=== PATIENT | female | born 1945 | race Caucasian/White ===

== ENCOUNTER → 2024-06-28 | Outpatient (CLI) | payer MEDICARE, OTHER ==
[2024-06-28 13:15] VITALS: BP 160/90; PULSE 88; RESP 16; TEMP 98.3
--- NOTE | 2024-06-28 13:37 | P.GSCN ---
History of Present Illness Consult date: 06/28/24 Reason for Consult: right breast invasive ductal cancer two sites Requesting physician: Cassandra Rust History of present illness: Briana is a 78 year old female seen in consultation for Dr. 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 1:00 and 2 o'clock position[place] [address]. This revealed 2 subcentimeter masses within the right breast mid posterior third at 1:00 and 2:00. She subsequently underwent an ultrasound of this area which confirmed the nodules. She then underwent an ultrasound-guided core biopsy at the 1 o'clock position this revealed invasive ductal carcinoma ER positive OR positive HER2 pending 2 o'clock position invasive ductal carcinoma ER positive OR positive HER2 negative. Noted on a routine mammogram. She did not feel any lumps masses or nodules of concern in either breast. She has never had any surgery on either breast prior to this. She is not complaining of any nipple discharge or skin changes. She has not had any recent trauma or infection in the breast. Caffeine: none nicotine: none chocolate: occasional BCP: used them for < 2 years hormones: none Family History: no cancer Hormonal History: menarche: 14 , breast fed: yes, age at first : 19 menopause: Feb 1998, 52 years old Surgical History: inguinal hernia bilateral gallbladder bilateral cataract Medical History: hypothyroid Social History: nicotine: none alcohol: none drugs: none Review of Systems - Constitutional Denies fever, Denies weight loss - EENT EENT Comment(s): wears glasses, dry eyes Eyes: bilateral as per HPI Ears: left: decreased hearing, deny: tinnitus Ears, nose, mouth and throat: Denies dysphagia - Breasts bilateral: as per HPI - Cardiovascular Denies chest pain, Denies shortness of breath - Respiratory Denies cough, Denies 7 - Gastrointestinal Reports as per HPI - Genitourinary Genitourinary: Denies dysuria, Denies hematuria Menstruation: Reports postmenopausal - Musculoskeletal Reports as per HPI - Integumentary Denies rash, Denies unusual bruising - Neurological Denies headaches, Denies syncope - Psychiatric Reports as per HPI - Endocrine Endocrine Comment(s): weight loss of 13 pounds not trying Reports weight change - Hematologic/Lymphatic Denies easy bleeding, Denies easy bruising - Allergic/Immunologic Reports as per HPI Past Medical History Past Medical History: Unable to Obtain History of Any Multi-Drug Resistant Organisms: None Reported Past Surgical History: Unable to Obtain Past Anesthesia/Blood Transfusion Reactions: Unable to Obtain Past Psychological History: No Psychological Hx Reported Smoking Status: Never smoker Past Alcohol Use History: None Reported Past Drug Use History: None Reported Medications and Allergies Home Medications Medication Instructions Recorded Confirmed Type Levothyroxine Sodium [Levoxyl] 75 mcg PO DAILY 06/28/24 06/28/24 History cycloSPORINE 0.05% OPHTH SOLN 1 drop BOTH EYES BID 06/28/24 06/28/24 History [Restasis] Allergies Allergy/AdvReac Type Severity Reaction Status Date / Time aspirin Allergy Nausea & Unverified 06/28/24 13:07 Vomiting & Diarrhea caffeine Allergy Nausea & Unverified 06/28/24 13:07 Vomiting & Diarrhea levofloxacin [From Levaquin] Allergy Rapid Unverified 06/28/24 13:07 Heart Rate Opioids - Morphine Analogues Allergy Rapid Unverified 06/28/24 13:07 Heart Rate Penicillins Allergy Rash/Hives Unverified 06/28/24 13:07 Sulfa (Sulfonamide Allergy Unknown Unverified 06/28/24 13:07 Antibiotics) Childhood Surgical - Exam Vital Signs Temp Pulse Resp BP Pulse Ox 98.3 F 88 16 160/90 97 06/28/24 13:09 06/28/24 13:09 06/28/24 13:09 06/28/24 13:09 06/28/24 13:09 - General no distress - Eyes normal ocular movement - Neck trachea midline - Respiratory normal respiratory effort, clear to auscultation - Cardiovascular Rhythm: regular Heart Sounds: normal: S1, S2 - Abdomen Abdomen: soft, non tender, no guarding, no rigid, no rebound - Integumentary normal turgor - Neurologic no disoriented, no combative - Musculoskeletal normal gait - Psychiatric oriented to time, oriented to person, oriented to place, speech is normal, memory intact Breast Exam: BRA: 36D inspection: Bilateral grade 3 ptosis Palpation: Right breast: Multi positional exam no dominant masses or nodules of concern, biopsy site in the 1 o'clock position is clean and dry with no evidence of hematoma or infection Right axilla: No adenopathy of concern Left breast: Multi positional exam no dominant masses or nodules of concern Left axilla: No adenopathy of concern Results Mammogram and ultrasound personally reviewed and interpreted with Dr. Varma from radiology, there are 2 sites in the right breast 1 at 1:00 and 1 at 1 30-2 o'clock both have been biopsied and clips are present in both sites the lesion appears to be in the 1-2 o'clock positions in the posterior breast behind the nipple areolar complex Assessment and Plan Assessment: Impression: Biopsy-proven invasive ductal carcinoma 1:00 and 2 o'clock position right breast Plan: Presentation of case at tumor board The patient is seen in conjunction with her and daughter. The disease process will be discussed with them and further recommendation to follow. Dr. Rust
== END ==
LOC: WWCWWP 11:31
PROVIDERS: ATTEND Surgery
DX: D05.11 Intraductal carcinoma in situ of right breast (principal); Z88.6 Allergy status to analgesic agent; Z91.018 Allergy to other foods; Z88.1 Allergy status to other antibiotic agents; Z88.5 Allergy status to narcotic agent; Z88.0 Allergy status to penicillin; Z88.2 Allergy status to sulfonamides

== ENCOUNTER → 2024-08-02 | Outpatient (CLI) | payer MEDICARE, OTHER ==
[2024-08-02 12:59] VITALS: BP 148/85; PULSE 68; RESP 17; TEMP 97.9
--- NOTE | 2024-08-02 13:33 | P.BCPN ---
Subjective Progress Note Date: 08/02/24 Principal diagnosis: right breast two sites invasive ductal cancer History of Present Illness Consult date: 08-02-24 Reason for Consult: right breast invasive ductal cancer two sites Requesting physician: Cassandra Rust History of present illness: Briana is a 78 year old female seen in consultation for Dr. 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 1:00 and 2 o'clock position. She underwent a bilateral mammogram on . This revealed 2 subcentimeter masses within the right breast mid posterior third at 1:00 and 2:00. She subsequently underwent an ultrasound of this area which confirmed the nodules. She then underwent an ultrasound-guided core biopsy at the 1 o'clock position this revealed invasive ductal carcinoma ER positive KS positive HER2 pending 2 o'clock position invasive ductal carcinoma ER positive KS positive HER2 negative. Noted on a routine mammogram. She did not feel any lumps masses or nodules of concern in either breast. She has never had any surgery on either breast prior to this. She is not complaining of any nipple discharge or skin changes. She has not had any recent trauma or infection in the breast. Patient's case presented at tumor board in 07 03 24. At this time it is felt that a needle localization lumpectomy with sentinel node injection sentinel node biopsy possible axillary node dissection and possible oncoplastic tissue transfer is the next step in the treatment. She has 2 sites which will be localized. She would like this to be done via a mastopexy incision. We are going to cancel her MRI and she is aware of this and at this time she is going to do genetic testing. We would request preoperative clearance from Dr. Zaragoza. The patient has been called the above has been discussed with her. Caffeine: none nicotine: none chocolate: occasional BCP: used them for < 2 years hormones: none Family History: no cancer Hormonal History: menarche: 14 , breast fed: yes, age at first : 19 menopause: Feb 1998, 52 years old Surgical History: inguinal hernia bilateral gallbladder bilateral cataract Medical History: hypothyroid Social History: nicotine: none alcohol: none drugs: none Review of Systems - Constitutional Denies fever, Denies weight loss - EENT EENT Comment(s): wears glasses, dry eyes Eyes: bilateral as per HPI Ears: left: decreased hearing, deny: tinnitus Ears, nose, mouth and throat: Denies dysphagia - Breasts bilateral: as per HPI - Cardiovascular Denies chest pain, Denies shortness of breath - Respiratory Denies cough - Gastrointestinal Reports as per HPI - Genitourinary Genitourinary: Denies dysuria, Denies hematuria Menstruation: Reports postmenopausal - Musculoskeletal Reports as per HPI - Integumentary Denies rash, Denies unusual bruising - Neurological Denies headaches, Denies syncope - Psychiatric Reports as per HPI - Endocrine Endocrine Comment(s): weight loss of 13 pounds not trying Reports weight change - Hematologic/Lymphatic Denies easy bleeding, Denies easy bruising - Allergic/Immunologic Reports as per HPI Past Medical History Past Medical History: Unable to Obtain History of Any Multi-Drug Resistant Organisms: None Reported Past Surgical History: Unable to Obtain Past Anesthesia/Blood Transfusion Reactions: Unable to Obtain Past Psychological History: No Psychological Hx Reported Smoking Status: Never smoker Past Alcohol Use History: None Reported Past Drug Use History: None Reported Medications and Allergies Home Medications Medication Instructions Recorded Confirmed Type Levothyroxine Sodium [Levoxyl] 75 mcg PO DAILY 06/28/24 06/28/24 History cycloSPORINE 0.05% OPHTH SOLN 1 drop BOTH EYES BID 06/28/24 06/28/24 History [Restasis] Allergies Allergy/AdvReac Type Severity Reaction Status Date / Time aspirin Allergy Nausea & Unverified 06/28/24 13:07 Vomiting & Diarrhea caffeine Allergy Nausea & Unverified 06/28/24 13:07 Vomiting & Diarrhea levofloxacin [From Levaquin] Allergy Rapid Unverified 06/28/24 13:07 Heart Rate Opioids - Morphine Analogues Allergy Rapid Unverified 06/28/24 13:07 Heart Rate Penicillins Allergy Rash/Hives Unverified 06/28/24 13:07 Sulfa (Sulfonamide Allergy Unknown Unverified 06/28/24 13:07 Antibiotics) Childhood Objective - Vital Signs Vital Signs: Vital Signs Temp 97.9 F 08/02/24 12:57 Pulse 68 08/02/24 12:57 Resp 17 08/02/24 12:57 BP 148/85 08/02/24 12:57 Pulse Ox 97 08/02/24 12:57 FiO2 Intake & Output 08/01/24 08/02/24 08/02/24 18:59 06:59 18:59 Weight 64.864 kg - Constitutional General appearance: Present: cooperative - EENT Eyes: Present: EOMI ENT: Present: hearing grossly normal - Neck Neck: Present: normal ROM - Breast Breast-Narrative: Breast Exam: BRA: 36D inspection: Bilateral grade 3 ptosis Palpation: Right breast: Multi positional exam no dominant masses or nodules of concern, biopsy site in the 1 o'clock position is clean and dry with no evidence of hematoma or infection Right axilla: No adenopathy of concern Left breast: Multi positional exam no dominant masses or nodules of concern Left axilla: No adenopathy of concern Ptosis: Grade 3: Right Breast Ptosis, Left Breast Ptosis Right Breast Palpation (Multi-positional): No dominant masses Left Breast Palpation (Multi-positional): No dominant masses Right Axilla Palpation: No adenopathy of concern Left Axilla Palpation: No adenopathy of concern - Respiratory Respiratory: bilateral: CTA - Cardiovascular Rhythm: regular Heart sounds: normal: S1, S2 - Integumentary Integumentary: Present: normal turgor - Musculoskeletal Musculoskeletal: Present: gait normal - Psychiatric Psychiatric: Present: A&O x's 3, appropriate affect, intact judgment & insight Assessment and Plan Plan: Impression: Biopsy-proven invasive ductal carcinoma 1:00 and 2 o'clock position right breast Plan: Right breast needle needle localization of two sites at 1:00 and 2:00 with lumpectomy, possible oncoplastic tissue transfer, right sentinel node injection, right sentinel node biopsy, possible right axillary node dissection, to be done via a mastopexy incision if possible Risk and benefits of the procedure discussed with the patient and her . Risk include but are not limited to bleeding, infection, reaction to the anesthetic. If the margins were to be positive for the needle slip in the tissue not adequately removed then further tissue acquisition may be necessary. With respect to the sentinel node biopsy we have discussed the fact that she is over 72 but she does have 2 areas of tumor and she would like to have the sentinel node biopsy performed. Risk include but are not limited to bleeding, infection, reaction to the anesthetic. There could be some decrease sensation to the inner arm, lymphedema, or injury to the thoracodorsal or long thoracic nerves resulting in winged scapula. She understands and wishes to proceed. The patient is seen in conjunction with her Dr. Rust Prep Education Provided - Preoperative Education Given Pre-Op Kit Given Date: 08/02/24 - Functional Assessment Performed?: Yes (arm abduction passed) Referal Provided?: No - Smoking Cessation Education Provided?: No (nonsmoker)
== END ==
LOC: WWCWWP 12:04
PROVIDERS: ATTEND Surgery
DX: Z12.31 Encounter for screening mammogram for malignant neoplasm of breast (principal); C50.211 Malignant neoplasm of upper-inner quadrant of right female breast; Z88.6 Allergy status to analgesic agent; Z91.018 Allergy to other foods; Z88.1 Allergy status to other antibiotic agents; Z88.5 Allergy status to narcotic agent; Z88.0 Allergy status to penicillin; Z88.2 Allergy status to sulfonamides

== ENCOUNTER 2024-08-14 06:57 | Day surgery (SDC) | payer MEDICARE, OTHER ==
[2024-08-14] MEDS ORDERED: fentaNYL (PF) 50 MCG/ML 2 ML AMP IV PRN (07:00)
[2024-08-14] MEDS ORDERED: MIDAZOLAM 2 MG/2 ML VIAL IV PRN (07:00)
[2024-08-14] MEDS ORDERED: METHYLENE BLUE 50 MG/10 ML AMPUL MISCELLANE ONE (07:30)
[2024-08-14] MEDS: IV FLUID CONTINUATION 1,000 ML IV ONE (07:31)
[2024-08-14] MEDS: ALPRAZolam 0.25 MG TAB PO STA (07:44)
[2024-08-14] MEDS: LACTATED RINGERS 1,000 ML IV SCH (07:48)
[2024-08-14] MEDS: LIDOCAINE 1% INJ 10MG/ML (20 ML MDV) SQ ONE ×3 (08:45→11:38)
[2024-08-14] MEDS: SODIUM BICARB 8.4% 50 ML VIAL (1 MEQ/ML) MISCELLANE ONE (08:45)
[2024-08-14] MEDS: METHYLENE BLUE 50 MG/10 ML AMPUL MISCELLANE ONE (09:05)
[2024-08-14] MEDS: ACETAMINOPHEN TAB 500 MG TAB PO PRN (09:45)
[2024-08-14] MEDS: HEPARIN SODIUM,PORCINE 5,000 UNIT/ML 1 ML VIAL SQ PRN (09:45)
[2024-08-14] MEDS: ONDANSETRON 4 MG/2 ML VIAL IVP ONE (09:46)
[2024-08-14] MEDS: DEXAMETHASONE SOD PHOSPHATE 4 MG/ML 1 ML VIAL IV ONE (09:46)
[2024-08-14] MEDS ORDERED: KETAMINE HCL IN 0.9 % NACL 50 MG/5 ML SYRINGE ONE (09:48)
[2024-08-14] MEDS ORDERED: LIDOCAINE 1% INJ 10MG/ML (20 ML MDV) ONE (09:48)
[2024-08-14] MEDS ORDERED: KETOROLAC 15 MG/ML 1 ML VIAL ONE (09:48)
[2024-08-14] MEDS ORDERED: SUCCINYLCHOLINE CHLORIDE 200 MG/10 ML VIAL IV ONE (09:48)
[2024-08-14] MEDS ORDERED: ePHEDrine 50 MG/ML 1 ML VIAL ONE (09:48)
[2024-08-14] MEDS ORDERED: diphenhydrAMINE 50 MG/ML 1 ML VIAL ONE (09:48)
[2024-08-14] MEDS ORDERED: fentaNYL (PF) 50 MCG/ML 2 ML AMP ONE (09:48)
[2024-08-14] MEDS ORDERED: PROPOFOL 10 MG/ML 20 ML VIAL IV ONE (09:48)
--- NOTE | 2024-08-14 09:59 | P.NAPBC ---
[facility] Queries - [facility] Queries Was patient's case review presented at [facility] tumor board? If no, comment.: Yes Was patient's pathology reviewed at [facility]? If no, comment.: Yes Was breast conservation surgery offered? If no, comment.: Yes Was sentinel node biopsy offered? If no, comment.: Yes Was diagnosis confirmed by percutaneous core biopsy? If no, comment.: Yes Is patient mastectomy patient?: No Was a preop referral to reconstructive surgeon offered?: No [facility] Comments: discussed SNB and patient understnads could ommit secondary to age > 70 but patient and family wnats this done Clinical Stage: two sites stage 1 IDC right breast [id number]-
--- NOTE | 2024-08-14 10:24 | NM ---
EXAMINATION TYPE: NM sentinel node injection DATE OF EXAM: 08/14/2024 COMPARISON: NONE CLINICAL INDICATION: Female, 78 years old with history of C50.211 BREAST CANCER; right-sided breast c ancer upper inner quadrant. TECHNIQUE AND FINDINGS: The procedure of sentinel lymph node injection was explained to the patient. The benefits, alternatives, and risks were discussed. An informed consent was then obtained. Overlying skin is cleaned with sterile alcohol. Following this, 510 uCi Tc99m Tilmanocept was inject ed in the upper outer aspect of the right nipple intradermally. The patient tolerated the procedure well without any immediate complication. The patient was kept in the radiology department for short stay after the procedure and then taken to surgery for surgical p rocedure what is presumed intraoperative gamma probe will be used for sentinel lymph node detection. IMPRESSION: Right breast radiotracer injection for sentinel node localization as above. [facility], , 08/14/2024 10:22 AM
[2024-08-14] MEDS: LACTATED RINGERS 1,000 ML IV ONE (11:38)
--- NOTE | 2024-08-14 11:42 | P.BCAON ---
Date of Procedure: 08/14/24 Preoperative Diagnosis: 2 sites invasive ductal carcinoma right breast Postoperative Diagnosis: Same Procedure(s) Performed: Breast sentinel node biopsy, rule lumpectomy 2 sites right breast, oncoplastic tissue transfer 54 cm Anesthesia: GETA Surgeon: Mireya Sykes Estimated Blood Loss (ml): 10 IV fluids (ml): 900 Pathology: other (Breast tissue/axillary tissue) Condition: stable Disposition: same day Indications for Procedure: Biopsy-proven right breast invasive ductal carcinoma 2 sites Operative Findings: Dense breast tissue Description of Procedure: The patient was first seen in the radiology department. Needle localization of both sites in the breast was performed as well as injection of methylene blue at the site. Radiotracer was performed for sentinel node biopsy. The patient was then brought to the operative suite. Following induction of anesthesia the axilla was interrogated using the neoprobe. The radiotracer was noted to have traveled to the axilla. The right breast and axilla were prepped and draped in a sterile fashion. The axilla was approached initially. An incision was made and carried down to the axillary tissue. Using the neoprobe the area of greatest radioactivity was identified. This was close to the chest wall. This was grasped using an Allis clamp. The tissue was resected. A lymph node was identified and the 10-second count on the lymph node was 4336. The 10-second background count was 30. No additional adenopathy of concern was identified. The wound was well irrigated. The deep tissues were closed using 3-0 Vicryl suture. The skin was closed using 4-0 Monocryl. The area of the breast was approached. Preoperatively have discussed with the patient that I would not be using a mastopexy incision and she concurred with this. An incision was made and carried down to the hook of both needles. Additionally the blue stained tissue was resected. The specimen was noted to be 6 x 4 cm in size. It was painted for orientation. Radiograph of the specimen revealed the clips and the wires were present. The dissection posteriorly was onto the pectoralis muscle. Anteriorly it was directly under the skin and the subcutaneous tissue. After we are sure that hemostasis was a attained a superior pillar developed by dissecting in the subcutaneous plane 5 x 3 cm was developed. An inferior pillar 5 x 3 cm was developed by dissecting in the subcutaneous plane. The pillars were brought together over the defect. Prior to that the defect was well irrigated. Titanium clips were placed. Surgicel in powder form was placed. The pillars were then brought together and secured using 3-0 Vicryl suture. The subcutaneous tissue was closed using 3-0 Vicryl suture. The skin was closed using 4-0 Monocryl. Surgical glue was placed. The patient tolerated the procedure in stable condition. 20 cc of 1% lidocaine was injected into the incision. All instrument and sponge counts were correct at the end of the case. - Sentinal Node Biopsy Operation performed with curative intent: Yes Tracer(s) used in upfront surgery (non-neoadjuvant): radioactive tracer Tracer(s) used in the neoadjuvant setting: N/A All nodes present at end of dye-filled channel removed: N/A All significantly radioactive nodes were removed: Yes All palpably suspicious nodes were removed: Yes Clipped positive nodes identified and removed: N/A
[2024-08-14 12:05] VITALS: TEMP 98
[2024-08-14 13:12] VITALS: RESP 16
[2024-08-14 13:29] VITALS: BP 149/93; PULSE 84
== END 2024-08-14 13:58 | disposition home or self-care (01) ==
LOC: OR 06:57
PROVIDERS: ATTEND Surgery
DX: C50.211 Malignant neoplasm of upper-inner quadrant of right female breast (principal); Z17.0 Estrogen receptor positive status [ER+]; Z17.21 Progesterone receptor positive status; Z17.32 Human epidermal growth factor receptor 2 negative status; E03.9 Hypothyroidism, unspecified; R73.03 Prediabetes; Z79.890 Hormone replacement therapy; Z88.6 Allergy status to analgesic agent; Z88.1 Allergy status to other antibiotic agents; Z88.5 Allergy status to narcotic agent; Z88.0 Allergy status to penicillin; Z88.2 Allergy status to sulfonamides
CPT/HCPCS: 38525; 19301; 14301; 88342; 88307; 88341; 76098; 19281; 19282; 38792; C1819; A9520; J0330; J1200; J1644; J1100; J0690; J2405; J2003; J3010; J1885; J2704; Q9968

== ENCOUNTER → 2024-08-23 | Outpatient (CLI) | payer MEDICARE, OTHER ==
[2024-08-23 12:50] VITALS: BP 143/86; PULSE 71; RESP 17; TEMP 98.1
--- NOTE | 2024-08-23 13:28 | P.BCPO ---
Progress Note - Text Progress Note Date: 08/23/24 Briana is status post right bresat needle localization lumpectomy and SNB on 08-14-24. 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 Two sites (+) on posterior margin, but this was on the pect muscle. She has noted erythematous punctate spots on the right upper extremity and in between the breast. They do not itch. SNB (-) The dissection posteriorly was onto the pectoralis muscle. Examination: lungs: clear heart: RRR Incision: clean and dry breast and axilla Erythematous punctate spots on the right upper extremity and between the breast. Impression: right breast mastectomy appointment dermatology she does not want to see plastic surgery about reconstruction Surgery have been discussed with the patient and her . Risk include but are not limited to bleeding, infection, reaction to the anesthetic. 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 They understand that with resection there may not be any additional cancer in the breast but would like to have the mastectomy done. Also discussed that should there be cancer close to the pectoralis muscle found in our reexcision then radiation may still be recommended. They understand and wish to proceed. Post Op Education - Post Op Education Post Op Education Provided Date: 08/23/24 Path Report - Was patient given path report? Path Report Date Given: 08/23/24
== END ==
LOC: WWCWWP 11:47
PROVIDERS: ATTEND Surgery
DX: Z90.11 Acquired absence of right breast and nipple (principal); Z88.6 Allergy status to analgesic agent; Z91.018 Allergy to other foods; Z88.5 Allergy status to narcotic agent; Z88.0 Allergy status to penicillin; Z88.2 Allergy status to sulfonamides

== ENCOUNTER 2024-09-11 07:22 | Day surgery (SDC) | payer MEDICARE, OTHER ==
[~2024-09-11 07:22] MED LIST: LIDOCAINE 1% (10MG/ML) FOR IV START INTRADERMA PRN
[2024-09-11] MEDS: LACTATED RINGERS 1,000 ML IV SCH (08:10)
[2024-09-11] MEDS: IV FLUID CONTINUATION 1,000 ML IV ONE (08:10)
[2024-09-11] MEDS: ACETAMINOPHEN TAB 500 MG TAB PO PRN (08:23)
[2024-09-11] MEDS: fentaNYL (PF) 50 MCG/ML 2 ML AMP IVP PRN (08:56)
[2024-09-11] MEDS: MIDAZOLAM 2 MG/2 ML VIAL IV PRN (08:56)
--- NOTE | 2024-09-11 09:16 | P.NAPBC ---
[facility] Queries - [facility] Queries Was patient's case review presented at [facility] tumor board? If no, comment.: Yes Was patient's pathology reviewed at [facility]? If no, comment.: Yes Was breast conservation surgery offered? If no, comment.: Yes Was sentinel node biopsy offered? If no, comment.: Yes (already done) Was diagnosis confirmed by percutaneous core biopsy? If no, comment.: Yes Is patient mastectomy patient?: Yes Was a preop referral to reconstructive surgeon offered?: Yes (patient declined) [facility] Comments: patient chose mastectomy after lumpectomy secondary to multifocal disease, she understands no residual may be found in specimen Clinical Stage: stage I [id number]+Her2- multifocal right breast cancer
--- NOTE | 2024-09-11 09:29 | P.ANPRN ---
Procedure Note - Anesthesia - Nerve Block Performed Right Pec 1 and Pec 2 Single Date of Procedure: 09/11/24 Procedure Start Time: 08:56 Procedure Stop Time: 09:14 Indication: Requested by Surgeon Sedation Type: Sedate with meaningful contact maintained Preparation: Sterile Prep Position: Supine Needle Types: Pajunk Needle Gauge: 21 Ultrasound used to visualize needle placement: Yes Ultrasound used to observe medication spread: Yes Injectate: 0.5% Ropivacaine (see comment for volume) (30 mls + 10 mls of NS+ 4 mgs of Decadron) Blood Aspirated: No Pain Paresthesia on Injection Noted: No Resistance on Injection: Normal Events: Uneventful and Well Tolerated
[2024-09-11] MEDS: ONDANSETRON 4 MG/2 ML VIAL IVP ONE (09:34)
[2024-09-11] MEDS: DEXAMETHASONE SOD PHOSPHATE 4 MG/ML 1 ML VIAL IV ONE (09:34)
[2024-09-11] MEDS: HEPARIN SODIUM,PORCINE 5,000 UNIT/ML 1 ML VIAL SQ PRN (09:35)
[2024-09-11] MEDS ORDERED: fentaNYL (PF) 50 MCG/ML 2 ML AMP ONE (09:39)
[2024-09-11] MEDS ORDERED: KETOROLAC 15 MG/ML 1 ML VIAL ONE (09:39)
[2024-09-11] MEDS ORDERED: LIDOCAINE 1% INJ 10MG/ML (20 ML MDV) ONE (09:39)
[2024-09-11] MEDS ORDERED: PROPOFOL 10 MG/ML 20 ML VIAL IV ONE (09:39)
[2024-09-11] MEDS ORDERED: SODIUM CHLORIDE 0.9% (PF) 10 ML VIAL ONE (09:39)
[2024-09-11] MEDS ORDERED: ROPIVACAINE 5 MG/ML 30 ML VIAL ONE (09:39)
[2024-09-11] MEDS ORDERED: WATER FOR INJECTION, STERILE 10 ML VIAL IV ONE (09:39)
[2024-09-11] MEDS ORDERED: diphenhydrAMINE 50 MG/ML 1 ML VIAL ONE (09:39)
[2024-09-11] MEDS ORDERED: ePHEDrine 50 MG/ML 1 ML VIAL ONE (09:39)
[2024-09-11] MEDS ORDERED: DEXAMETHASONE SOD PHOSPHATE 4 MG/ML 1 ML VIAL ONE (09:39)
[2024-09-11] MEDS: ceFAZolin 2 GM in DEXTROSE 5% IN WATER 50 ML IVPB PRN (09:43)
[2024-09-11] MEDS: LACTATED RINGERS 1,000 ML IV ONE (10:51)
[2024-09-11] MEDS ORDERED: ALPRAZolam 0.25 MG TAB PO PRN (11:36)
[2024-09-11] MEDS ORDERED: ONDANSETRON 4 MG/2 ML VIAL IVP PRN (11:36)
[2024-09-11] MEDS ORDERED: HYDROcodone/APAP 5-325MG 1 EACH TAB PO PRN (11:36)
[2024-09-11] MEDS ORDERED: MORPHINE SULFATE 4 MG/ML SYRINGE IVP PRN (11:36)
[2024-09-11] MEDS ORDERED: BENZOCAINE/MENTHOL LOZENG 1 EACH LOZENGE MUCOUS MEM PRN (11:36)
[2024-09-11] MEDS ORDERED: NALOXONE 0.4 MG/ML 1 ML VIAL IV PRN (11:36)
[2024-09-11] MEDS ORDERED: MELATONIN 3 MG TABLET PO PRN (11:36)
--- NOTE | 2024-09-11 11:36 | P.BCAON ---
Date of Procedure: 09/11/24 Preoperative Diagnosis: Right breast invasive ductal carcinoma multifocal Postoperative Diagnosis: Same Procedure(s) Performed: Right mastectomy Anesthesia: SEAN Surgeon: Mireya Sykes Estimated Blood Loss (ml): 10 IV fluids (ml): 1,100 Pathology: other (Breast) Condition: stable Disposition: floor Indications for Procedure: Right breast multifocal invasive ductal carcinoma Operative Findings: Dense breast tissue Description of Procedure: The patient was taken to the operative suite and following induction of anesthesia the right breast and axilla were prepped and draped in a sterile fashion. Superior and inferior markings were placed for superior and inferior skin flaps. The superior skin flap was developed initially. Dissection was performed through the skin and subcutaneous tissue. Using the plane between the skin and the breast in the subcutaneous tissue the superior flap was developed. It was followed down to the pectoralis muscle. Hemostasis was attained using the electrocautery device as well as the harmonic scalpel. In a similar fashion through the skin into the subcutaneous tissue. Dissection was performed in this plane down to the chest wall. The breast was then removed from medial to lateral off the pectoralis muscle being careful to maintain hemostasis using the Bovie, harmonic scalpel, and suture ligation of any vessels that were necessary. The breast was removed and a superior suture was placed which was short and an lateral suture was placed which was long. The breast was handed off as a specimen. The wound was well irrigated. Surgicel in powder form was placed. After we were sure that hemostasis was attained the subcutaneous tissues were closed using interrupted 3-0 Vicryl suture. This was followed by running 3-0 Vicryl suture. The skin was reapproximated using 4-0 Monocryl. Surgical glue was placed. 20 cc of 1% lidocaine were injected into the incision. The patient tolerated the procedure in stable condition. All instrument and sponge counts were correct at the end of the case.
[2024-09-11] MEDS: LIDOCAINE 1% INJ 10MG/ML (20 ML MDV) SQ ONE (11:50)
[2024-09-11] MEDS: DEXTROSE 5%-0.45% NACL 1,000 ML IV SCH (13:51)
[2024-09-11] MEDS: HEPARIN SODIUM,PORCINE 5,000 UNIT/ML 1 ML VIAL SQ SCH (16:11)
[2024-09-12 05:25] LABS: Basophils # (A) 0.05 10*3/uL (0.00-0.10); Basophils % (A) 0.4 %; Eosinophils # (A) 0.26 10*3/uL (0.04-0.35); Eosinophils % (A) 2.2 %; HCT 33.7 % (37.2-46.3); HGB 11.1 g/dL (12.0-15.0); Lymphocytes # (A) 1.43 10*3/uL (0.90-5.00); Lymphocytes % (A) 11.9 %; MCH 30.5 pg (27.0-32.0); MCHC 32.9 g/dL (32.0-37.0); MCV 92.6 fL (80.0-97.0); Monocytes % (A) 6.7 %; Neutrophils # (A) 9.42 10*3/uL (1.80-7.70); Neutrophils % (A) 78.6 %; Platelet Count 186 10*3/uL (140-440); RBC 3.64 10*6/uL (4.10-5.20); WBC 11.98 10*3/uL (4.50-10.00)
[2024-09-12 08:46] VITALS: BP 121/70; PULSE 68; RESP 17; TEMP 98.6
--- NOTE | 2024-09-12 09:40 | P.PN ---
Subjective Progress Note Date: 09/12/24 Principal diagnosis: Postop day #1 right mastectomy Patient is doing well postoperatively. Her ANDRES drain has had no output. He is not complaining of any pain. She is tolerating diet without difficulty. Objective - Vital Signs Vital signs: Vital Signs Temp 98.6 F 09/12/24 08:00 Pulse 68 09/12/24 08:00 Resp 17 09/12/24 08:00 BP 121/70 09/12/24 08:00 Pulse Ox 99 09/12/24 08:00 FiO2 Intake & Output 09/11/24 09/12/24 09/12/24 18:59 06:59 18:59 Intake Total 1700 Output Total 460 Balance 1240 Weight 63 kg Intake: IV 1700 Output: Urine 450 Estimated Blood Loss 10 Other: # Voids 1 3 - Constitutional General appearance: Present: cooperative - EENT Eyes: Present: EOMI ENT: Present: hearing grossly normal - Neck Neck: Present: normal ROM - Respiratory Respiratory: bilateral: CTA - Cardiovascular Rhythm: regular Heart sounds: normal: S1, S2 - Integumentary Integumentary Comment(s): Right chest wall clean and dry ANDRES drain is not functioning Small seroma present - Labs CBC & Chem 7: 09/12/24 04:42 Labs: Abnormal Lab Results - Last 24 Hours (Table) 09/12/24 Range/Units 04:42 WBC 11.98 H (4.50-10.00) 10*3/uL RBC 3.64 L (4.10-5.20) 10*6/uL Hgb 11.1 L (12.0-15.0) g/dL Hct 33.7 L (37.2-46.3) % Neutrophils # 9.42 H (1.80-7.70) 10*3/uL Assessment and Plan Assessment: Impression: Patient doing well postop day #1 mastectomy ANDRES drain not functioning Plan: Milking ANDRES drain The ANDRES drain was milked and an attempt to draw fluid back using a 20 cc syringe was also performed. No fluid was able to be drawn back. Therefore the ANDRES drain was removed. Upon removing the drain approximately 50 cc of serous fluid extruded from the drain site. There appeared to be complete resolution of any seroma. Patient is stable for discharge home She does inform that a seroma may again develop in which case we would aspirated in the office.
[2024-09-12] MEDS: ACETAMINOPHEN TAB 500 MG TAB PO PRN (10:00)
== END 2024-09-12 10:05 | disposition home or self-care (01) ==
LOC: OR 07:22 → 4FBP 11:54 → OR 09-12 10:05
PROVIDERS: ATTEND Surgery
DX: L82.1 Other seborrheic keratosis (principal); E03.9 Hypothyroidism, unspecified; Z79.890 Hormone replacement therapy; Z88.6 Allergy status to analgesic agent; Z88.5 Allergy status to narcotic agent; Z88.0 Allergy status to penicillin; Z88.2 Allergy status to sulfonamides
CPT/HCPCS: 19303; 64466; 85025; 88307; J2250; J1200; J1644 ×2; J1100; J0690; J2405; J2003; J3010; J2795; J1885; J2704

== ENCOUNTER → 2024-09-14 | Outpatient (CLI) | payer MEDICARE, OTHER ==
--- NOTE | 2024-09-14 08:25 | P.BCPO ---
Progress Note - Text Progress Note Date: 09/14/24 Briana is status post right mastectomy on 09-11-24. This was done for multifocal cancer with DCIS, she had (+) posterior margin, and close anterior/inferior/superior margins to DCIS. She therefore chose to have a mastectomy. The pathology did not show any residual cancer. She was doing well postprocedure. The drain stopped working and was removed on the first postoperative day and she did develop a seroma at the mastectomy site. Lungs: Clear Heart: Regular rate and rhythm Incision: Clean and dry seroma at mastectomy site Impression: Patient doing well post operatively Plan: Aspiration seroma Appointment medical oncology Appointment radiation oncology Following informed consent the area of concern in the right chest wall was prepped using chlorhexidine. An 18-gauge needle and a 20 cc syringe was used to aspirate 120 cc of straw-colored fluid. Patient tolerated this without diff iculty. CC: Dr. Rust
[2024-09-14 08:34] VITALS: BP 173/90; PULSE 72; RESP 16; TEMP 97.9
== END ==
LOC: WWCWWP 07:47
PROVIDERS: ATTEND Surgery
DX: Z90.11 Acquired absence of right breast and nipple (principal); Z88.0 Allergy status to penicillin; Z88.2 Allergy status to sulfonamides; Z88.6 Allergy status to analgesic agent; Z88.8 Allergy status to other drugs, medicaments and biological substances; Z88.1 Allergy status to other antibiotic agents; Z88.5 Allergy status to narcotic agent

== ENCOUNTER → 2024-09-20 | Outpatient (CLI) | payer MEDICARE, OTHER ==
[2024-09-20 14:48] VITALS: BP 130/81; PULSE 78; RESP 16; TEMP 97.9
--- NOTE | 2024-09-20 15:03 | P.BCPO ---
Progress Note - Text Progress Note Date: 09/20/24 09/20/24 Briana is status post right mastectomy on 09-11-24. This was done for multifocal cancer with DCIS, she had (+) posterior margin, and close anterior/inferior/superior margins to DCIS. She therefore chose to have a mastectomy. The pathology did not show any residual cancer. She was doing well postprocedure. The drain stopped working and was removed on the first postoperative day and she did develop a seroma at the mastectomy site. Lungs: Clear Heart: Regular rate and rhythm Incision: Clean and dry seroma at mastectomy site Oncotype: 7 will probably recommend hormone therapy 120 CC aspirated on last visit 60 CC aspirated on 09-20-24 Impression: Patient doing well post operatively Plan: Aspiration seroma Appointment medical oncology needs appointment Appointment radiation oncology needs appointment follow up in 2 weeks Following informed consent the area of concern in the right chest wall was prepped using chlorhexidine. An 18-gauge needle and a 60 cc syringe was used to aspirate 60 cc of straw-colored fluid. Patient tolerated this without difficulty. CC: Dr. Rust
== END ==
LOC: WWCWWP 13:52
PROVIDERS: ATTEND Surgery
DX: D05.10 Intraductal carcinoma in situ of unspecified breast (principal); Z90.11 Acquired absence of right breast and nipple; Z88.0 Allergy status to penicillin; Z88.2 Allergy status to sulfonamides; Z88.5 Allergy status to narcotic agent; Z88.6 Allergy status to analgesic agent; Z91.018 Allergy to other foods

== ENCOUNTER → 2024-10-05 | Outpatient (CLI) | payer MEDICARE, OTHER ==
[2024-10-05 11:16] VITALS: BP 157/74; PULSE 75; RESP 16; TEMP 97.6
--- NOTE | 2024-10-05 11:24 | P.PN ---
Subjective Progress Note Date: 10/05/24 Principal diagnosis: right bresat DCIS Progress Note Date: 10-05-24 Briana is status post right mastectomy on 09-11-24. This was done for multifocal cancer with DCIS, she had (+) posterior margin, and close anterior/inferior/superior margins to DCIS. She therefore chose to have a mastectomy. The pathology did not show any residual cancer. She was doing well postprocedure. The drain stopped working and was removed on the first postoperative day and she did develop a seroma at the mastectomy site. Lungs: Clear Heart: Regular rate and rhythm Incision: Clean and dry seroma at mastectomy site Oncotype: 7 will probably recommend hormone therapy 120 CC aspirated on last visit 60 CC aspirated on 09-20-24 87 CC straw colored fluid aspirated with complete resolution of seroma Impression: Patient doing well post operatively Plan: Aspiration seroma Appointment medical oncology needs appointment Appointment radiation oncology needs appointment follow up in 4 weeks Following informed consent the area of concern in the right chest wall was prep ped using chlorhexidine. An 18-gauge needle and a 60 cc syringe was used to aspirate 87 cc of straw-colored fluid. Patient tolerated this without difficulty. CC: Dr. Rust Objective - Vital Signs Vital signs: Intake & Output 10/04/24 10/05/24 10/05/24 18:59 06:59 18:59 Weight 63.503 kg
== END ==
LOC: WWCWWP 10:49
PROVIDERS: ATTEND Surgery
DX: Z48.89 Encounter for other specified surgical aftercare (principal); Z90.11 Acquired absence of right breast and nipple; Z88.8 Allergy status to other drugs, medicaments and biological substances; Z88.1 Allergy status to other antibiotic agents; Z88.0 Allergy status to penicillin; Z88.2 Allergy status to sulfonamides; Z88.5 Allergy status to narcotic agent

== ENCOUNTER → 2024-11-02 | Outpatient (CLI) | payer MEDICARE, OTHER ==
[2024-11-02 12:09] VITALS: BP 135/88; PULSE 71; RESP 17; TEMP 97.9
--- NOTE | 2024-11-02 12:27 | P.PN ---
Subjective Progress Note Date: 11/02/24 Principal diagnosis: DCIS right breast 11-02-24 Principal diagnosis: right breast DCIS Briana is status post right mastectomy on 09-11-24. This was done for multifocal cancer with DCIS, she had (+) posterior margin, and close a nterior/inferior/superior margins to DCIS. She therefore chose to have a mastectomy. The pathology did not show any residual cancer. She was doing well postprocedure. The drain stopped working and was removed on the first postoperative day and she did develop a seroma at the mastectomy site. Lungs: Clear Heart: Regular rate and rhythm Incision: Clean and dry seroma at mastectomy site Oncotype: 7 will probably recommend hormone therapy 09-14-24 120 CC aspirated 09-20-24 60 CC aspirated o 10-05-24 87 CC straw colored fluid aspirated with complete resolution of seroma 11-02-24 10 cc of straw-colored fluid aspirated from the mastectomy site with resolution of the seroma Impression: Patient doing well post operatively Plan: Aspiration seroma Appointment medical oncology November 15 Discussed radiation oncology, at this time it is not felt that she needs any radiation but she will discuss this with medical oncology as well follow up in 3 months Following informed consent the area of concern in the right chest wall was prepped using chlorhexidine. An 18-gauge needle and a 60 cc syringe was used to aspirate 10 cc of straw-colored fluid. Patient tolerated this without difficult y. CC: Dr. Rust Objective - Vital Signs Vital signs: Intake & Output 10/04/24 10/05/24 10/05/24 18:59 06:59 18:59 Weight 63.503 kg Additional CC's: Cassandra Rust Objective - Vital Signs Vital signs: Vital Signs Temp 97.9 F 11/02/24 12:07 Pulse 71 11/02/24 12:07 Resp 17 11/02/24 12:07 BP 135/88 11/02/24 12:07 Pulse Ox 98 11/02/24 12:07 FiO2 Intake & Output 11/01/24 11/02/24 11/02/24 18:59 06:59 18:59 Weight 63.503 kg
== END ==
LOC: WWCWWP 11:58
PROVIDERS: ATTEND Surgery
DX: Z98.890 Other specified postprocedural states (principal); Z88.0 Allergy status to penicillin; Z88.2 Allergy status to sulfonamides; Z88.1 Allergy status to other antibiotic agents; Z88.5 Allergy status to narcotic agent; Z88.6 Allergy status to analgesic agent; Z91.048 Other nonmedicinal substance allergy status